=== PATIENT | female | born 1965 | race Caucasian/White ===

== ENCOUNTER 2016-10-20 09:02 | Day surgery (SDC) | payer OTHER, MEDICARE ==
[2016-10-12 18:33] VITALS: BMI 25.7
[~2016-10-20 09:02] MED LIST: HYDROmorphone 1 MG/ML 1 ML SYRINGE IVP PRN; LIDOCAINE 1% 20 ML VIAL (10MG/ML) FOR IV START INTRADERMA PRN; MIDAZOLAM 2 MG/2 ML VIAL IV PRN; ONDANSETRON 4 MG/2 ML VIAL IVP PRN; Pre Op ABX Message 1 EACH MISC MISCELLANE ONE
[2016-10-20] MEDS: LACTATED RINGERS 1,000 ML IV SCH ×2 (09:30→12:17)
[2016-10-20] MEDS ORDERED: NALOXONE 0.4 MG/ML 1 ML VIAL ONE (10:24)
[2016-10-20] MEDS ORDERED: ePHEDrine 50 MG/ML 1 ML AMP ONE (10:24)
[2016-10-20] MEDS ORDERED: PHENYLEPHRINE-0.9% NACL SYG 1 MG/10 ML SYRINGE ONE (10:24)
[2016-10-20] MEDS ORDERED: LIDOCAINE 1% INJ 10MG/ML (20 ML MDV) ONE (10:24)
[2016-10-20] MEDS ORDERED: PROPOFOL 10 MG/ML 20 ML VIAL IV ONE (10:24)
[2016-10-20] MEDS ORDERED: MIDAZOLAM 2 MG/2 ML VIAL ONE (10:24)
[2016-10-20] MEDS ORDERED: SUCCINYLCHOLINE CHLORIDE 100 MG/5 ML SYR IV ONE (10:24)
[2016-10-20] MEDS ORDERED: fentaNYL (PF) 50 MCG/ML 2 ML AMP ONE (10:24)
--- NOTE | 2016-10-20 10:29 | P.GSHP ---
History of Present Illness H&P Date: 10/20/16 Chief Complaint: Neck lipoma Patient here today for excision of a neck lipoma. She has had a small subcutaneous nodular mass that is at times uncomfortable to her and has been increasing in size. It is just to the right of midline. Previous studies suggested this represents a lipoma. Denies any redness or drainage from that region. No prior biopsy. She does have a history of thyroid nodules. Past Medical History Past Medical History: Eye Disorder, Fibromyalgia, Hyperlipidemia, Osteoarthritis (OA), Thyroid Disorder Additional Past Medical History / Comment(s): CHRONIC DRY EYE. LIPOMA RT NECK. PTSD. VERTIGO. History of Any Multi-Drug Resistant Organisms: None Reported Past Surgical History: Appendectomy, Hysterectomy, Orthopedic Surgery Additional Past Surgical History / Comment(s): Angiogram. LT KNEE SCOPE. COLONOSCOPY. HEMORROIDECTOMY. Past Anesthesia/Blood Transfusion Reactions: Postoperative Nausea & Vomiting ( PONV) Past Psychological History: Anxiety, Depression, PTSD Smoking Status: Never smoker Past Alcohol Use History: None Reported Past Drug Use History: None Reported Additional Drug Use History / Comment(s): canabis oil - Past Family History Brother(s) Family Medical History: Cancer Father Family Medical History: Cancer Mother Family Medical History: Cancer Medications and Allergies Home Medications Medication Instructions Recorded Confirmed Type Atorvastatin [Lipitor] 20 mg PO HS 12/10/14 10/12/16 History Levothyroxine Sodium [Synthroid] 25 mcg PO DAILY 12/10/14 10/12/16 History Potassium Chloride [Klor-Con 10] 10 meq PO DAILY 12/10/14 10/12/16 History buPROPion XL [Wellbutrin Xl] 150 mg PO BID 12/10/14 10/12/16 History ALPRAZolam [Xanax] 2 mg PO DAILY 05/08/15 10/12/16 History Amitriptyline HCl [Elavil] 30 mg PO HS 05/08/15 10/12/16 History Baclofen [Lioresal] 10 mg PO TID 10/12/16 10/12/16 History Multivitamins, Thera [Multivitamin] 1 tab PO DAILY 10/12/16 10/12/16 History Naproxen [Naprosyn] 500 mg PO Q12HR PRN 10/12/16 10/12/16 History Allergies Allergy/AdvReac Type Severity Reaction Status Date / Time No Known Allergies Allergy Verified 10/12/16 18:08 Surgical - Exam Vital Signs Temp Pulse Resp BP Pulse Ox 98.2 F 94 16 122/95 99 10/20/16 09:29 10/20/16 09:29 10/20/16 09:29 10/20/16 09:29 10/20/16 09:29 Physical exam: General: Well-developed, well-nourished HEENT: Normocephalic, sclerae nonicteric, 1.5-2 cm subcutaneous soft fleshy mass to the right of midline at about the level of the thyroid cartilage nontender, no adenopathy noted Abdomen: Nontender, nondistended Extremities: No edema Neuro: Alert and oriented Assessment and Plan (1) Lipoma of neck Narrative/Plan: We'll proceed with surgical excision. If this represents either a lymph node or a thyroglossal duct cyst Will excise accordingly. Risk of bleeding, infection, nerve injury, numbness, recurrence, postoperative pain were discussed. She understands and wishes to proceed. Status: Acute
[2016-10-20] MEDS ORDERED: HEPARIN SODIUM,PORCINE 5,000 UNIT/ML 1 ML VIAL SQ STA (10:30)
[2016-10-20] MEDS ORDERED: BUPIVACAIN-EPI 0.25%-1:200,000 30 ML VIAL SQ ONE ×2 (10:49)
[2016-10-20] MEDS ORDERED: HYDROcodone/APAP 5-325MG 1 EACH TAB PO PRN (11:10)
[2016-10-20] MEDS ORDERED: NALOXONE 0.4 MG/ML 1 ML VIAL IV PRN (11:10)
--- NOTE | 2016-10-20 11:12 | P.OP ---
Date of Procedure: 10/20/16 Procedure(s) Performed: PREOPERATIVE DIAGNOSIS: Neck lipoma POSTOPERATIVE DIAGNOSIS: Same PROCEDURE: Excision SURGEON: Rafa EBL: Minimal ANESTHESIA: General COMPLICATIONS: None OPERATIVE PROCEDURE: Patient was placed in the beach chair position. The neck was prepped and draped in usual sterile fashion. A small horizontal incision was made through a skin crease overlying the palpable mass. The subcutaneous tissues and platysmal layer was divided using electrocautery. The lipomatous mass measured 2.5 cm this was fully excised. The subcutaneous tissues were closed using 3-0 Vicryl sutures and the skin using a 4-0 Monocryl stitch. Steri -Strips and sterile dressings were applied. DISPOSITION: Stable to recovery room
[2016-10-20 11:33] VITALS: TEMP 97.3
[2016-10-20 12:01] VITALS: RESP 16
[2016-10-20 12:56] VITALS: BP 132/86; PULSE 71
== END 2016-10-20 13:20 | disposition home or self-care (01) ==
LOC: OR 09:02
PROVIDERS: ATTEND Surgery
DX: D17.0 Benign lipomatous neoplasm of skin and subcutaneous tissue of head, face and neck (principal); F32.9 Major depressive disorder, single episode, unspecified; M79.7 Fibromyalgia; E78.5 Hyperlipidemia, unspecified; F41.9 Anxiety disorder, unspecified; F43.10 Post-traumatic stress disorder, unspecified; M19.90 Unspecified osteoarthritis, unspecified site; E07.9 Disorder of thyroid, unspecified; Z79.899 Other long term (current) drug therapy
CPT/HCPCS: 21555; 88304; J2250; J2310; J2405; J2001; J3010; J1170; J2370; J0330; J2704

== ENCOUNTER 2018-03-03 13:46 | Emergency (ER) | payer BC, MEDICARE ==
[2018-03-03 13:58] VITALS: RESP 18
[2018-03-03] MEDS ORDERED: DIPH,PERTUS(ACELL)TETVAC-LF 0.5 ML VIAL IM ONE (14:00)
--- NOTE | 2018-03-03 14:14 | ED ---
General Adult HPI - General Chief complaint: Animal Bite Stated complaint: lac to finger Time Seen by Provider: 03/03/18 13:56 Source: patient, RN notes reviewed Mode of arrival: ambulatory Limitations: no limitations - History of Present Illness Initial comments: 52-year-old female presents to the emergency department for a chief complaint of laceration on the dog tooth 1 hour ago. Patient states she was throwing a ball to the dog when it dog jumped up and she lacerated her finger on the tooth. The dog did not bite her. Patient knows the dog as it is her daughter' s dog. It is up-to-date on vaccinations. Patient does need a tetanus shot. Patient states she felt like she could see bone and muscle within the tip of the finger. Patient states she has slight numbness to the tip of the affected finger. Patient denies pain anywhere also in the hand. Patient has no other complaints at this time including shortness of breath, chest pain, abdominal pain, nausea or vomiting, headache, or visual changes. - Related Data Home Medications Medication Instructions Recorded Confirmed Atorvastatin [Lipitor] 20 mg PO HS 12/10/14 10/12/16 Levothyroxine Sodium [Synthroid] 25 mcg PO DAILY 12/10/14 10/12/16 Potassium Chloride [Klor-Con 10] 10 meq PO DAILY 12/10/14 10/12/16 buPROPion XL [Wellbutrin Xl] 150 mg PO BID 12/10/14 10/12/16 ALPRAZolam [Xanax] 2 mg PO DAILY 05/08/15 10/12/16 Amitriptyline HCl [Elavil] 30 mg PO HS 05/08/15 10/12/16 Baclofen [Lioresal] 10 mg PO TID 10/12/16 10/12/16 Multivitamins, Thera [Multivitamin] 1 tab PO DAILY 10/12/16 10/12/16 Naproxen [Naprosyn] 500 mg PO Q12HR PRN 10/12/16 10/12/16 Previous Rx's Medication Instructions Recorded Hydrocodone/Acetaminophen [[place] 1 - 2 each PO Q4HR PRN #20 tab 10/20/16 5-325] Amoxicillin/Potassium Clav 1 tab PO Q12HR #20 tab 03/03/18 [Augmentin 875-125 Tablet] Allergies Allergy/AdvReac Type Severity Reaction Status Date / Time No Known Allergies Allergy Verified 03/03/18 13:52 Review of Systems ROS Statement: Those systems with pertinent positive or pertinent negative responses have been documented in the HPI. ROS Other: All systems not noted in ROS Statement are negative. Past Medical History Past Medical History: Eye Disorder, Fibromyalgia, Hyperlipidemia, Osteoarthritis (OA), Thyroid Disorder Additional Past Medical History / Comment(s): CHRONIC DRY EYE. LIPOMA RT NECK. PTSD. VERTIGO. History of Any Multi-Drug Resistant Organisms: None Reported Past Surgical History: Appendectomy, Hysterectomy, Orthopedic Surgery Additional Past Surgical History / Comment(s): Angiogram. LT KNEE SCOPE. COLONOSCOPY. HEMORROIDECTOMY. Past Anesthesia/Blood Transfusion Reactions: Postoperative Nausea & Vomiting ( PONV) Past Psychological History: Anxiety, Depression, PTSD Smoking Status: Never smoker Past Alcohol Use History: None Reported Past Drug Use History: None Reported - Past Family History Brother(s) Family Medical History: Cancer Father Family Medical History: Cancer Mother Family Medical History: Cancer General Exam Limitations: no limitations General appearance: alert, in no apparent distress Respiratory exam: Present: normal lung sounds bilaterally. Absent: respiratory distress, wheezes, rales, rhonchi, stridor Cardiovascular Exam: Present: regular rate, normal rhythm, normal heart sounds. Absent: systolic murmur, diastolic murmur, rubs, gallop, clicks Extremities exam: Present: full ROM (Patient has full range of motion in the affected right index finger at the DIP PIP and MCP joint. Full ROM in the rest of the hand. ), tenderness, normal capillary refill (Cap refill < 2 secs in right 2nd digit distal phalanx. Cap refill <2 seconds in the right and left upper extremities bilaterally. Radial pulse 2+ in upper extremities bilaterally. ), other (There is a 2.5 cm flap-like laceration to the volar aspect of the distal phalanx of right index finger. No signs of infection. No foreign bodies noted. ). Absent: joint swelling Course Vital Signs 03/03/18 13:52 Temperature 97 F L Pulse Rate 94 Respiratory 18 Rate Blood Pressure 141/85 O2 Sat by Pulse 98 Oximetry Procedures - Procedures Initial comment: Body area: volar aspect distal phalanx of right index finger Laceration length: 2.5 cm Foreign bodies: no foreign bodies Tendon involvement: none Nerve involvement: none Vascular damage: no Anesthesia: digital block Local anesthetic: 4 mL 1% lidocaine Preparation: Patient was prepped and draped in the usual sterile fashion. Irrigation solution: saline and iodine Irrigation method:saline jet lavage Skin closure: 5-0 Ethilon using sterile technique Number of sutures: 2 Technique: interupted Dressing: antibiotic ointment/ gauze Patient tolerance: Patient tolerated the procedure well with no immediate complications. Medical Decision Making - Medical Decision Making 52-year-old female presents to the emergency department for a chief complaint of laceration on top tooth about one hour ago. Patient states she was throwing a ball to the dog when the tooth lacerated her. Patient denies dog bite. Dog is vaccinated and known. Patient states she felt like she could see bone and muscle through the laceration. On exam there is a 2.5 cm laceration to the volar aspect of the second digit right hand on the distal phalanx. Capillary refill intact in the distal right index finger. Sensation intact in the distal right finger as well. Full range of motion of DIP, PIP, MCP joint of the right index finger. No deep structures affected. X-ray demonstrates no acute fracture or dislocation. Wound was well irrigated with saline jet lavage and iodine. It was tacked closed with 2 sutures so as not to be left gaping but to allow for drainage. Patient was given Augmentin. Patient is to follow up with Dr. Padgett the hand surgeon. She already has his number and does not need it on the paperwork. She is to monitor for any signs of infection and return if she notices any. These were discussed with her extensively. She was also given a tetanus in the emergency department. Dr. Estrada also saw the patient. Disposition Clinical Impression: Laceration Disposition: HOME SELF-CARE Condition: Good Instructions: Laceration (ED) Additional Instructions: Please take antibiotic as directed. Please monitor closely for any signs of infection and return to the emergency department if you notice these including spreading redness, streaking redness, drainage, or fevers. Please follow-up with primary care or orthopedic hand surgeon. Prescriptions: Amoxicillin/Potassium Clav [Augmentin 875-125 Tablet] 1 tab PO Q12HR #20 tab Is patient prescribed a controlled substance at d/c from ED?: No Referrals: Travon Hernandez DO [Primary Care Provider] - 1-2 days Time of Disposition: 15:25
--- NOTE | 2018-03-03 15:03 | XR ---
Second digit right hand HISTORY: Trauma and pain 3 views of the second digit of the right hand Bone mineralization, joint spaces and alignment are maintained. Soft tissue swelling is noted. No rad iopaque foreign body. IMPRESSION: No fracture or dislocation.
[2018-03-03 15:31] VITALS: BP 139/91; PULSE 77; TEMP 98
== END 2018-03-03 15:31 | disposition home or self-care (01) ==
LOC: EC 13:46
DX: S61.210A Laceration without foreign body of right index finger without damage to nail, initial encounter (principal); E78.5 Hyperlipidemia, unspecified; E07.9 Disorder of thyroid, unspecified; F32.9 Major depressive disorder, single episode, unspecified; F41.9 Anxiety disorder, unspecified; Z79.899 Other long term (current) drug therapy; Z23 Encounter for immunization; W54.0XXA Bitten by dog, initial encounter; Y93.89 Activity, other specified
CPT/HCPCS: 12001; 90471; 90715; 99283

== ENCOUNTER 2021-03-03 12:36 | Emergency (ER) | payer OTHER, MEDICARE ==
[2021-03-03 12:40] VITALS: BP 125/83; PULSE 71; RESP 16; TEMP 98.1
[2021-03-03] MEDS ORDERED: HYDROmorphone 0.5 MG/0.5 ML SYRINGE IVP STA (12:48)
[2021-03-03] MEDS ORDERED: HYDROmorphone 1 MG/ML 1 ML SYRINGE IVP STA (14:01)
--- NOTE | 2021-03-03 14:07 | XR ---
EXAMINATION TYPE: XR forearm RT, XR wrist complete RT DATE OF EXAM: 03/03/2021 CLINICAL HISTORY: Injury with pain TECHNIQUE: Two views of the right forearm are obtained. 4 views right wrist. COMPARISON: None. FINDINGS: There is suboptimal lateral projection noted. There is acute comminuted minimally displaced intra-articular fracture of the distal radial meta-epiphysis. Adjacent ulna are intact. Carpal joint spaces are maintained. No additional acute fracture or dislocation in the proximal right radius or ulna. Overlying soft tiss ues unremarkable. IMPRESSION: There is acute minimally displaced comminuted intra-articular fracture of distal radial meta-epiphysis.
--- NOTE | 2021-03-03 14:07 | ED ---
Upper Extremity HPI - General Chief Complaint: Extremity Injury, Upper Stated Complaint: rt wrist injury Time Seen by Provider: 03/03/21 12:43 Source: patient Mode of arrival: wheelchair Limitations: no limitations - History of Present Illness Initial Comments: 55yo female presenting for cc of right wrist pain x 1 hour. pt states that just prior to arrival she was using her sensor specialist when she hit s log and it pushed the steering wheel back. it pushed wrist back. pt stats she has significant pain and cannot move the wrist. pt denies elbow or shoulder pain. patient denies falls or lacerations. remaining ROS (-). - Related Data Home Medications Medication Instructions Recorded Confirmed Atorvastatin [Lipitor] 20 mg PO HS 12/10/14 10/12/16 Levothyroxine Sodium [Synthroid] 25 mcg PO DAILY 12/10/14 10/12/16 Potassium Chloride [Klor-Con 10] 10 meq PO DAILY 12/10/14 10/12/16 buPROPion XL [Wellbutrin Xl] 150 mg PO BID 12/10/14 10/12/16 ALPRAZolam [Xanax] 2 mg PO DAILY 05/08/15 10/12/16 Amitriptyline HCl [Elavil] 30 mg PO HS 05/08/15 10/12/16 Baclofen [Lioresal] 10 mg PO TID 10/12/16 10/12/16 Multivitamins, Thera [Multivitamin] 1 tab PO DAILY 10/12/16 10/12/16 Naproxen [Naprosyn] 500 mg PO Q12HR PRN 10/12/16 10/12/16 Previous Rx's Medication Instructions Recorded Hydrocodone/Acetaminophen [[place] 1 - 2 each PO Q4HR PRN #20 tab 10/20/16 5-325] Amoxicillin/Potassium Clav 1 tab PO Q12HR #20 tab 03/03/18 [Augmentin 875-125 Tablet] HYDROcodone/APAP 7.5-325MG [[place] 1 tab PO Q4H PRN 3 Days #18 tab 03/03/21 7.5-325] Allergies Allergy/AdvReac Type Severity Reaction Status Date / Time No Known Allergies Allergy Verified 03/03/21 12:39 Review of Systems ROS Statement: Those systems with pertinent positive or pertinent negative responses have been documented in the HPI. ROS Other: All systems not noted in ROS Statement are negative. Past Medical History Past Medical History: Eye Disorder, Fibromyalgia, Hyperlipidemia, Osteoarthritis (OA), Thyroid Disorder Additional Past Medical History / Comment(s): CHRONIC DRY EYE. LIPOMA RT NECK. PTSD. VERTIGO. History of Any Multi-Drug Resistant Organisms: None Reported Past Surgical History: Appendectomy, Hysterectomy, Orthopedic Surgery Additional Past Surgical History / Comment(s): Angiogram. LT KNEE SCOPE. COLONOSCOPY. HEMORROIDECTOMY. Past Anesthesia/Blood Transfusion Reactions: Postoperative Nausea & Vomiting (P ONV) Past Psychological History: Anxiety, Depression, PTSD Smoking Status: Never smoker Past Alcohol Use History: None Reported Past Drug Use History: None Reported - Past Family History Brother(s) Family Medical History: Cancer Father Family Medical History: Cancer Mother Family Medical History: Cancer General Exam - General Exam Comments Initial Comments: General: The patient is awake and alert, in no distress Eye: +3 mm pupils are equal, round and reactive to light, extra-ocular m ovements are intact. No nystagmus. There is normal conjunctiva bilaterally. No signs of icterus. Cardiovascular: There is a regular rate and rhythm. No murmur, rub or gallop is appreciated. Respiratory: Lungs are clear to auscultation, respirations are non-labored, breath sounds are equal. No wheezes, stridor, rales, or rhonchi. Gastrointestinal: [Soft, non-distended, non-tender abdomen without masses or organomegaly noted. There is no rebound or guarding present. Musculoskeletal: Diffuse tenderness of the wrist. there is swelilng without gross deformity. compartments of forearm are soft and compressible. Normal ROM of digits but refused to range at the wrist. Strength 5/5. Sensation intact. Radial pulses equal bilaterally 2+. Patient is able to make the thumbs up fingers crossed opposes small digit and thumb, no wrist drop. Neurological: A&O x 3. CN II-XII intact grossly, There are no obvious motor or sensory deficits. Coordination appears grossly intact. Speech is normal. Skin: Skin is warm and dry and no rashes or lesions are noted. Psychiatric: Cooperative, appropriate mood & affect, normal judgment. Limitations: no limitations Course Vital Signs 03/03/21 12:37 Temperature 98.1 F Pulse Rate 71 Respiratory 16 Rate Blood Pressure 125/83 O2 Sat by Pulse 99 Oximetry Procedures - Orthopedic Splinting/Casting Injury #1 Side: right Upper Extremity Injury Location: wrist Upper Extremity Immobilizer: sling/shoulder immobilizer, wrist splint, [place] wrap, synthetic pre-padded splint Medical Decision Making - Medical Decision Making 55yo female presenting for cc of wrist pain. ther is distal radius fracture. pt is neurovascularly intact both prior to and after splinting. pt placed in sling and was dishcarged on [place] with pcp f/u. pt agreeable to care plan and discharge. Disposition Clinical Impression: Fracture of right distal radius Disposition: HOME SELF-CARE Condition: Good Instructions (If sedation given, give patient instructions): Wrist Fracture in Adults (ED) Additional Instructions: Please use medication as discussed. Please follow-up with orthopedic surgery in the next 2-3 days, keep splint in place, use spling for comfort. Please return to emergency room if the symptoms increase or worsen or for any other concerns. Prescriptions: HYDROcodone/APAP 7.5-325MG [[place] 7.5-325] 1 tab PO Q4H PRN 3 Days #18 tab PRN Reason: Severe Pain Is patient prescribed a controlled substance at d/c from ED?: No Referrals: Travon Hernandez DO [Primary Care Provider] - 1-2 days Brijesh Rose MD [STAFF PHYSICIAN] - 1-2 days Time of Disposition: 14:03
[2021-03-03] MEDS ORDERED: HYDROcodone/APAP 7.5-325MG 1 EACH TAB PO ONE (14:25)
== END 2021-03-03 14:28 | disposition home or self-care (01) ==
LOC: EC 12:36
DX: S52.571A Other intraarticular fracture of lower end of right radius, initial encounter for closed fracture (principal); M79.7 Fibromyalgia; E78.5 Hyperlipidemia, unspecified; M19.90 Unspecified osteoarthritis, unspecified site; E07.9 Disorder of thyroid, unspecified; F32.9 Major depressive disorder, single episode, unspecified; F41.9 Anxiety disorder, unspecified; Z90.49 Acquired absence of other specified parts of digestive tract; Z90.710 Acquired absence of both cervix and uterus; X58.XXXA Exposure to other specified factors, initial encounter
CPT/HCPCS: 73090; 73110; 99283; 96374; 96376; J1170 ×2

== ENCOUNTER → 2021-03-13 | Outpatient (CLI) | payer OTHER, MEDICARE ==
--- NOTE | 2021-03-13 10:01 | US ---
EXAMINATION TYPE: US abdomen limited DATE OF EXAM: 03/13/2021 COMPARISON: NONE CLINICAL HISTORY: Attn. Gallbladder; K81.0 Cholecystitis. Intermittent RUQ pain, constipation EXAM MEASUREMENTS: Liver Length: 16.5 cm Gallbladder Wall: 0.2 cm CBD: 0.4 cm Right Kidney: 8.9 x 3.8 x 3.7 cm Pancreas: wnl Liver: wnl Gallbladder: wnl Evidence for sonographic Rose's sign: no CBD: wnl Right Kidney: wnl IMPRESSION: 1. No cholelithiasis. No gallbladder wall thickening, or pericholecystic fluid. 2. Otherwise, unremarkable sonographic study of the right upper quadrant.
== END | disposition home or self-care (01) ==
LOC: RADUSWWP 08:53
PROVIDERS: ATTEND Family Medicine
DX: K81.0 Acute cholecystitis (principal); K59.00 Constipation, unspecified
CPT/HCPCS: 76705